=== PATIENT | female | born 1975 | race Caucasian/White ===

== ENCOUNTER 2022-12-09 13:04 | Outpatient (CLI) | payer BC ==
[2022-12-09 14:08] LABS: #Basophils 0.1 10x3/uL (0.0-0.2); #Eosinphils 0.3 10x3/uL (0.0-0.5); #Monocytes 0.6 10x3/uL (0.0-1.1); #Neutrophils 6.1 10x3/uL (1.5-8.4); %Basophils 0.9 % (0.0-2.0); %Eosinophils 3.5 % (0.0-6.0); %Lymphocytes 26.9 % (18.0-47.0); %Monocytes 6.4 % (0.0-10.0); Hematocrit 41.6 % (34.9-44.5); Hemoglobin 14.5 g/dL (12.0-15.5); Mean Corpuscular HGB CONC 34.9 g/dL (32.0-36.0); Mean Corpuscular Volume 94.8 fl (81.6-98.3); Mean Platelet Volume 9.9 fl (7.4-10.4); Platelet Count 264 10x3/uL (150-450); RBC Distribution Width 11.2 % (11.5-14.5); Red Blood Cell (RBC) Count 4.39 10x6/uL (3.90-5.03); White Blood Cell (WBC) Count 9.8 10x3/uL (3.5-10.5)
[2022-12-09 14:23] LABS: BHCG - Serum Negative (NEGATIVE); Pregs Control Background? CLEAR/WHITE (CLR/WHITE); Pregs Control Bar Appear? YES (CONTROL BAR)
[2022-12-09 14:28] LABS: Anion Gap 14 mmol/L (10-20); BUN (Urea Nitrogen) 11 mg/dL (7.0-18.7); Calc. Creatinine Clearance 0 mL/min (70-130); Calcium 8.7 mg/dL (7.8-10.44); Carbon Dioxide 22 mmol/L (22-29); Chloride 106 mmol/L (98-107); Estimated GFR 88; Glucose 124 mg/dL (70-105); Potassium 3.8 mmol/L (3.5-5.1); Sodium 138 mmol/L (136-145)
== END 2022-12-09 13:05 | disposition home or self-care (01) ==
LOC: LABBT 13:04
PROVIDERS: ATTEND Specialist
DX: Z01.812 Encounter for preprocedural laboratory examination (principal); R92.1 Mammographic calcification found on diagnostic imaging of breast
CPT/HCPCS: 80048; 84703; 85025

== ENCOUNTER 2022-12-13 06:56 | Day surgery (SDC) | payer BC ==
[2022-12-09 13:35] VITALS: BMI 28.0
[2022-12-13] MEDS ORDERED: Acetaminophen 500 MG TAB ONE (11:41)
[2022-12-13] MEDS ORDERED: Ketorolac Tromethamine 30 MG/ML VIAL ONE (11:41)
[2022-12-13] MEDS ORDERED: fentaNYL PF 100 MCG/2 ML SYRINGE ONE (12:12)
[2022-12-13] MEDS ORDERED: HYDROmorphone 0.5 MG/0.5 ML SYRINGE ONE (12:12)
[2022-12-13] MEDS ORDERED: Bupivacaine 0.25% HCL 30 ML VIAL ONE (12:13)
[2022-12-13] MEDS ORDERED: EPINEPHrine 1 MG/ML AMP ONE (12:13)
[2022-12-13] MEDS ORDERED: Famotidine/PF 20 mg/2ml Vial ONE (12:16)
[2022-12-13] MEDS ORDERED: CEFAZOLIN 2 GM VIAL ONE (12:21)
[2022-12-13] MEDS ORDERED: Sodium Chloride 0.9% 100 ML ONE (12:21)
[2022-12-13] MEDS ORDERED: ePHEDrine Sulfate 50 MG/10 ML VIAL ONE (12:27)
[2022-12-13] MEDS ORDERED: Ondansetron PF 4 MG/2 ML Vial ONE ×2 (12:27→14:42)
[2022-12-13] MEDS ORDERED: PROPOFOL 200 MG/20 ML VIAL ONE (12:27)
[2022-12-13] MEDS ORDERED: Dexamethasone 20 MG/5 ML VIAL ONE (12:27)
[2022-12-13] MEDS ORDERED: Lidocaine 1% PF 5 ML VIAL ONE (12:27)
== END 2022-12-13 15:27 | disposition home or self-care (01) ==
LOC: SDC 06:56
PROVIDERS: ATTEND Specialist
PROC: 0H95XZX Drainage of Chest Skin, External Approach, Diagnostic (ICD-10-PCS; principal; 2022-12-13)
DX: D05.12 Intraductal carcinoma in situ of left breast (principal); R92.1 Mammographic calcification found on diagnostic imaging of breast; Z88.0 Allergy status to penicillin; Z79.899 Other long term (current) drug therapy
CPT/HCPCS: 19281; 76098; 88307; 88341; 88342; C1713; J0171; J1100; J1170; J1885; J2405; J2704; J3490; S0020; S0028